=== PATIENT | male | born 1980 | race American Indian/Alaskan Native ===

== ENCOUNTER 2021-09-19 20:21 | Emergency (ER) | payer SELFPAY ==
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
[2021-09-20 12:07] VITALS: BP 115/88
== END 2021-09-20 12:12 | disposition home or self-care (01) ==
LOC: ED 20:21
DX: M79.642 Pain in left hand (principal)
CPT/HCPCS: 99283